=== PATIENT | female | born 1990 | race Two or more races ===

== ENCOUNTER → 2019-08-22 | Outpatient (REF) | payer OTHER | LOC: M LAB LCGH 11:55 | PROVIDERS: ATTEND Family Medicine | DX: Z12.4 Encounter for screening for malignant neoplasm of cervix (principal) ==

== ENCOUNTER → 2023-09-14 | Outpatient (CLI) | payer BC ==
[2023-09-14 16:00] LABS: HEMATOCRIT 33.5 % (36.0-47.0); HEMOGLOBIN 10.6 g/dl (12.0-15.5); MEAN CORPUSCULAR HEMOGLOBIN 27.5 pg (27.0-33.0); MEAN CORPUSCULAR HGB CONC 31.6 g/dl (32.0-36.5); MEAN CORPUSCULAR VOLUME 86.8 fl (80.0-96.0); PLATELET COUNT, AUTOMATED 419 10^3/uL (150-450); RED BLOOD COUNT 3.86 10^6/uL (4.00-5.40); WHITE BLOOD COUNT 16.6 10^3/uL (4.0-10.0)
[2023-09-14 16:15] LABS: TOTAL PROTEIN,RANDOM URINE 37.6 MG/DL (0.0-14.0)
[2023-09-14 16:20] LABS: CREATININE,RANDOM URINE 156.7 MG/DL
[2023-09-14 16:21] LABS: ALBUMIN 2.4 G/DL (3.2-5.2); ALKALINE PHOSPHATASE 123 U/L (46-116); ALT/SGPT 11 U/L (7.0-40); AST/SGOT 18 U/L (<34); BILIRUBIN,TOTAL 0.3 MG/DL (0.3-1.2); BLOOD UREA NITROGEN 10 MG/DL (9-23); CALCIUM LEVEL 8.9 MG/DL (8.5-10.1); CARBON DIOXIDE LEVEL 23 MMOL/L (20-31); CHLORIDE LEVEL 104 MMOL/L (98-107); GLOMERULAR FILTRATION RATE > 60.0 (>60); GLUCOSE, FASTING 60 MG/DL (60-100); POTASSIUM SERUM 4.3 MMOL/L (3.5-5.1); SODIUM LEVEL 136 MMOL/L (136-145); TOTAL PROTEIN 6.3 G/DL (5.7-8.2)
== END ==
LOC: M PLALAB 12:23
PROVIDERS: ATTEND Obstetrics & Gynecology
DX: O13.3 Gestational [pregnancy-induced] hypertension without significant proteinuria, third trimester (principal); Z3A.00 Weeks of gestation of pregnancy not specified

== ENCOUNTER → 2023-09-14 | Outpatient (REF) | payer BC | LOC: M PLALAB 12:46 | PROVIDERS: ATTEND Obstetrics & Gynecology | DX: O13.3 Gestational [pregnancy-induced] hypertension without significant proteinuria, third trimester (principal); O32.1XX0 Maternal care for breech presentation, not applicable or unspecified; Z87.59 Personal history of other complications of pregnancy, childbirth and the puerperium; Z3A.36 36 weeks gestation of pregnancy ==

== ENCOUNTER → 2023-09-18 | Outpatient (CLI) | payer BC | LOC: M WHC 07:05 | PROVIDERS: ATTEND Obstetrics & Gynecology | DX: O13.3 Gestational [pregnancy-induced] hypertension without significant proteinuria, third trimester (principal); Z3A.37 37 weeks gestation of pregnancy ==

== ENCOUNTER 2023-09-25 15:05 | Inpatient (IN) | payer BC ==
[2023-09-25] VITALS (22 sets, daily range): BP systolic 112–156; BP diastolic 53–86
[~2023-09-25] VITALS: Ht 162.6 cm; Wt 104.4 kg
[2023-09-25] MEDS ORDERED: PRENTAB9 PO (15:43)
[2023-09-25] MEDS ORDERED: HOME MED LIST COMPLETE! XX SCH (15:50)
[2023-09-25 16:11] LABS: HEMATOCRIT 31.9 % (36.0-47.0); HEMOGLOBIN 10.2 g/dl (12.0-15.5); MEAN CORPUSCULAR HEMOGLOBIN 26.6 pg (27.0-33.0); MEAN CORPUSCULAR VOLUME 83.3 fl (80.0-96.0); PLATELET COUNT, AUTOMATED 402 10^3/uL (150-450); RED BLOOD COUNT 3.83 10^6/uL (4.00-5.40); WHITE BLOOD COUNT 14.7 10^3/uL (4.0-10.0)
[2023-09-25] MEDS ORDERED: OXYTOCIN DRIP 30 UNITS in IV 1 EA IV PRN (16:15)
[2023-09-25] MEDS ORDERED: TRANEXAMIC ACID INJection 1,000 MG in NS 100 ML IV PRN (16:15)
[2023-09-25] MEDS ORDERED: LIDOCAINE 1% MDV 20ML VIAL INFIL PRN (16:15)
[2023-09-25] MEDS ORDERED: CARBOPROST TROMETHAMINE 250 MCG/ML AMP IM PRN (16:15)
[2023-09-25] MEDS: ceFAZolin SOD 2 GM in IV 1 EA IV STA (17:25)
[2023-09-25] MEDS: OXYTOCIN DRIP 30 UNITS in IV 1 EA IV SCH (17:25)
[2023-09-25] MEDS: LR 1,000 ML IV SCH (17:25)
[2023-09-25] MEDS ORDERED: ePHEDrine SULFATE 25 MG/5 ML(5MG/ML) SYRINGE IVP PRN (21:10)
[2023-09-25] MEDS ORDERED: LR 500 ML IV PRN (21:10)
[2023-09-25] MEDS ORDERED: ONDANSETRON 4MG 2ML VIAL IV PRN (21:10)
[2023-09-25] MEDS ORDERED: NALOXONE INJ 0.4MG/1ML VIAL IV PRN (21:10)
[2023-09-25] MEDS ORDERED: diphenhydrAMINE 50MG/ML VIAL IV PRN (21:10)
[2023-09-25] MEDS ORDERED: EPIDURAL/PCA KEYS XX PRN (21:10)
[2023-09-26] VITALS (26 sets, daily range): BP systolic 113–151; BP diastolic 55–78; O2SAT 96–99
[2023-09-26] MEDS ORDERED: ceFAZolin SOD 1 GM in D5W MINI-BAG PLUS 50 ML IV SCH (00:15)
[2023-09-26] MEDS: LACTATED RINGER'S 1000 ML IV STA (01:09)
[2023-09-26] MEDS: FENTANYL/ROPIVACAINE/NACL BAG 100 ML EPIDURAL SCH (01:21)
[2023-09-26] MEDS: ceFAZolin SOD 1 GM in D5W MINI-BAG PLUS 50 ML IV SCH (02:01)
[2023-09-26] MEDS ORDERED: METHYLERGONOVINE MALEATE 0.2 MG TAB PO PRN (07:00)
[2023-09-26] MEDS ORDERED: IBUPROFEN 600MG TAB PO PRN (07:00)
[2023-09-26] MEDS ORDERED: ANUSOL HC CREAM 30GM TOP PRN (07:00)
[2023-09-26] MEDS ORDERED: ACETAMINOPHEN TAB 650MG DOSE (2X325MG) PO PRN (07:00)
[2023-09-26] MEDS ORDERED: DOCUSATE SODIUM 100MG CAPSULE PO PRN (07:00)
[2023-09-26] MEDS ORDERED: RHOGAM 300MCG (1500IU) INJ IM SCH (07:00)
[2023-09-26] MEDS: PRENATAL VITAMINS CHEWABLE TABLET PO SCH (08:03)
[2023-09-26] MEDS: DIBUCAINE 1% OINTMENT 30GM TOP PRN (09:42)
[2023-09-26] MEDS: IBUPROFEN 800 MG TAB PO PRN (09:43)
[2023-09-26] MEDS: ACETAMINOPHEN 500 MG TAB PO PRN (15:36)
[2023-09-27 02:00] VITALS: BP 144/64; O2SAT 98
[2023-09-27 06:00] VITALS: BP 130/64; O2SAT 99
[2023-09-27 10:00] VITALS: BP 132/65; O2SAT 98
[2023-09-28] MEDS ORDERED: MEASLES,MUMPS,RUBELLA VACCINE INJ (MMR-II) SC.IMMUN ONE (09:00)
== END 2023-09-27 13:55 | disposition home or self-care (01) | DRG 560 ==
LOC: M LDI 15:05 → M OBS 09-26 07:51
PROVIDERS: ADMIT Advanced Practice Midwife; ATTEND Advanced Practice Midwife
PROC: 3E033VJ Introduction of Other Hormone into Peripheral Vein, Percutaneous Approach (ICD-10-PCS; 2023-09-25)
PROC: 10E0XZZ Delivery of Products of Conception, External Approach (ICD-10-PCS; principal; 2023-09-26)
PROC: 10907ZC Drainage of Amniotic Fluid, Therapeutic from Products of Conception, Via Natural or Artificial Opening (ICD-10-PCS; 2023-09-26)
PROC: 0HQ9XZZ Repair Perineum Skin, External Approach (ICD-10-PCS; 2023-09-26)
DX: O40.3XX0 Polyhydramnios, third trimester, not applicable or unspecified (principal); O70.0 First degree perineal laceration during delivery; Z37.0 Single live birth; Z3A.37 37 weeks gestation of pregnancy; O13.4 Gestational [pregnancy-induced] hypertension without significant proteinuria, complicating childbirth

== ENCOUNTER → 2023-11-04 | Outpatient (CLI) | payer BC ==
[~2023-11-04] MED LIST: PRENTAB9 PO
[2023-11-04 11:24] LABS: HEMATOCRIT 39.4 % (36.0-47.0); HEMOGLOBIN 12.1 g/dl (12.0-15.5); MEAN CORPUSCULAR HEMOGLOBIN 26.4 pg (27.0-33.0); MEAN CORPUSCULAR HGB CONC 30.7 g/dl (32.0-36.5); MEAN CORPUSCULAR VOLUME 85.8 fl (80.0-96.0); PLATELET COUNT, AUTOMATED 409 10^3/uL (150-450); RED BLOOD COUNT 4.59 10^6/uL (4.00-5.40); WHITE BLOOD COUNT 8.4 10^3/uL (4.0-10.0)
== END ==
LOC: M PLALAB 09:22
PROVIDERS: ATTEND Advanced Practice Midwife
DX: Z39.2 Encounter for routine postpartum follow-up (principal)

== ENCOUNTER → 2023-11-24 | Outpatient (REF) | payer BC | LOC: M SFHCWAGY 10:05 | PROVIDERS: ATTEND Nurse Practitioner Family | DX: R30.0 Dysuria (principal) ==